=== PATIENT | female | born 1965 | race Caucasian/White ===

== ENCOUNTER 2017-09-22 11:05 | Emergency (ER) | payer OTHER ==
[~2017-09-22] VITALS: Ht 172.7 cm; Wt 80.0 kg
[2017-09-22 11:15] VITALS: BP 123/60; PULSE 61; RESP 16; TEMP 98.1; O2SAT 99
--- NOTE | 2017-09-22 12:46 | RADRPT ---
EXAM DATE: 09/22/2017 12:43 PM EDT AGE/SEX: 52 years / Female INDICATIONS: Pain in right lateral and anterior foot pain post fall yesterday. CLINICAL DATA: This is the patient's initial encounter. Patient reports that signs and symptoms have been present for 1 day and indicates a pain score of 7/10. MEDICAL/SURGICAL HISTORY: None. None. COMPARISON: No prior [facility] exams available for comparison. FINDINGS: Bony structures are intact and in normal alignment. Osseous density is normal. Soft tissues are unre markable. No radiopaque foreign bodies seen. CONCLUSION: Intact right foot. Electronically signed by: Nirmal Foley MD 09/22/2017 12:45 PM EDT
--- NOTE | 2017-09-22 12:48 | RADRPT ---
EXAM DATE: 09/22/2017 12:44 PM EDT AGE/SEX: 52 years / Female INDICATIONS: Right lateral ankle pain post fall yesterday. CLINICAL DATA: This is the patient's initial encounter. Patient reports that signs and symptoms have been present for 1 day and indicates a pain score of 7/10. MEDICAL/SURGICAL HISTORY: None. None. COMPARISON: [facility] [place]OT RIGHT COMPLETE ([id number]), 09/22/2017. . FINDINGS: Sliver-like avulsion fracture fragment with minimal displacement seen of the tip of the lateral malle olus. The right ankle is otherwise intact. There are no subluxations. There is mild lateral soft tiss ue swelling. CONCLUSION: Tiny and minimally displaced avulsion fracture off of the lateral malleolus. Electronically signed by: Nirmal Foley MD 09/22/2017 12:47 PM EDT
[2017-09-22] MEDS ORDERED: ACETAMINOPHEN/HYDROcodone 325 MG/5 MG TAB PO ONE (13:15)
[2017-09-22] MEDS ORDERED: NORC5TAB PO (13:18)
--- NOTE | 2017-09-22 13:19 | PD ---
HPI . Right ankle and foot injury Chief Complaint: Injury Time Seen by Provider: 12:28 Travel History International Travel<30 days: No Contact w/Intl Traveler<30days: No Traveled to known affect area: No History of Present Illness HPI Patient presents with a chief complaint of an injury to the right ankle and foot. She inadvertently inverted her ankle last night. She comes in now complaining with continued pain and swelling. Pain is rated 9/10. It is exacerbated by walking. PFSH Past Medical History Medical History: Denies Significant Hx ?: Not Past Surgical History Surgical History: No Previous Surgery Social History Alcohol Use: Yes (OCC) Tobacco Use: No Substance Use: No Allergies-Medications (Allergen,Severity, Reaction): Coded Allergies: ibuprofen (Verified Adverse Reaction, Mild, BRUISING, 09/22/17) Review of Systems Except as stated in HPI: all other systems reviewed are Neg Physical Exam Narrative GENERAL: Awake and alert and in no acute distress. SKIN: Warm and dry. Normal color and turgor. Intact. HEAD: Normocephalic/atraumatic. EYES: Pupils are equal. Extraocular movements are intact. NECK: Normal range of motion. Supple. CARDIOVASCULAR: Regular rate and rhythm. RESPIRATORY: Nonlabored respirations. Normal sats. MUSCULOSKELETAL: Right ankle has swelling and tenderness of the lateral malleolus. The ankle is stable. She is distally neurovascularly intact. NEUROLOGICAL: A and O 3. Nonfocal. PSYCHIATRIC: Appropriate mood and affect. Data Data Last Documented VS Vital Signs Date Time Temp Pulse Resp B/P (MAP) Pulse Ox O2 Delivery O2 Flow Rate FiO2 09/22/17 11:15 98.1 61 16 123/60 (81) 99 Orders Orders Foot, Complete ([id number]) (09/22/17 12:22) Ankle, Complete ([id number]) (09/22/17 12:29) [employer] Request For Service (09/22/17 13:11) Acetamin-Hydrocod 325-5 Mg (Kinards 5-325 (09/22/17 13:15) MDM Medical Decision Making Medical Screen Exam Complete: Yes Emergency Medical Condition: Yes Differential Diagnosis Differential diagnosis of extremity trauma includes but is not limited to fracture, sprain or strain, dislocation, contusion Narrative Course Patient presents for evaluation of right ankle injury. She twisted her ankle last night. She is tender over the lateral malleolus. Last Impressions Ankle X-Ray 09/22/17 1229 Signed Impressions: CONCLUSION: Tiny and minimally displaced avulsion fracture off of the lateral malleolus. Foot X-Ray 09/22/17 1222 Signed Impressions: CONCLUSION: Intact right foot. The x-rays were independently reviewed by me. She will be placed in a Harvey dressing. She reports that she would like to use a cane for ambulation. I will give her a prescription for Kinards for pain. E- Forcse has been worried and reviewed. Diagnosis Primary Impression: Avulsion fracture of right ankle Qualified Codes: S82.891A - Other fracture of right lower leg, initial encounter for closed fracture Patient Instructions: Avulsion Fracture (DC), General Instructions, RICE Therapy (ED) Additional Instructions: You may remove the wrap in 2 or 3 days. After that, you may find that you are most comfortable in an ankle brace which you can purchase at the drugstore. Med/Other Pt SpecificInfo: Prescription(s) given Scripts Hydrocodone-Acetaminophen (Kinards) 5 Mg-325 Mg Tab 1 TAB PO Q4H Y for PAIN, #12 TAB 0 Refills Prov: Komal Kolb MD 09/22/17 Disposition: 01 DISCHARGE HOME Condition: Stable Komal Kolb MD Sep 22, 2017 13:19
== END 2017-09-22 13:42 | disposition home or self-care (01) ==
LOC: NEPD 11:05
DX: S82.891A Other fracture of right lower leg, initial encounter for closed fracture (principal); X50.1XXA Overexertion from prolonged static or awkward postures, initial encounter; Z88.6 Allergy status to analgesic agent
CPT/HCPCS: 73610; 73630; 99283